=== PATIENT | male | born 1965 | race Caucasian/White ===

== ENCOUNTER 2018-04-23 01:16 | Emergency (ER) | payer MEDICAID ==
[~2018-04-23] VITALS: Ht 177.8 cm; Wt 101.4 kg
[2018-04-23 01:30] VITALS: Ht 177.8 cm; Wt 101.4 kg
[2018-04-23] MEDS ORDERED: ASPIRIN 81 MG TAB PO STA (01:56)
[2018-04-23 03:09] VITALS: BP 141/99; PULSE 78; RESP 19
--- NOTE | 2018-04-23 03:11 | ERD ---
ER Documentation Chief Complaint Chief Complaint pt reports CP started at 1600, pain is described as pressure HPI 52-year-old male with no past medical history presenting with chest pain that started around 4 PM today while he was at work. He was not doing any exertion at this time. The pain was in the left side of his chest, pressure-like, nonradiating, lasting for about 20 minutes with no other associated symptoms. Pain then spontaneously resolved. At 12 AM, he felt similar symptoms which is why he is here right now. He denies any chest pain currently. No shortness of breath, dizziness, nausea, vomiting. No history of recent travel, immobilization, or history of blood clots. ROS All systems reviewed and are negative except as per history of present illness. Allergies Allergies: Coded Allergies: No Known Allergy (Unverified , 04/23/18) PMhx/Soc Medical and Surgical Hx: pt denies Medical Hx, pt denies Surgical Hx Hx Alcohol Use: No Hx Substance Use: No Hx Tobacco Use: No Smoking Status: Never smoker FmHx Family History: No diabetes, No coronary disease Physical Exam Vitals Vital Signs Date Temp Pulse Resp B/P (MAP) Pulse Ox O2 O2 Flow FiO2 Time Delivery Rate 04/23/18 78 19 141/99 98 Room Air 03:09 (113) 04/23/18 98.0 90 16 166/100 99 01:30 (122) Physical Exam Const: No acute distress Head: Atraumatic Eyes: Normal Conjunctiva ENT: Normal External Ears, Nose and Mouth. Neck: Full range of motion. No meningismus. Resp: Clear to auscultation bilaterally Cardio: Regular rate and rhythm, no murmurs. 2+ distal pulses in all 4 extremities Abd: Soft, non tender, non distended. Normal bowel sounds Skin: No petechiae or rashes Back: No midline or flank tenderness Ext: No cyanosis, or edema Neur: Awake and alert Psych: Normal Mood and Affect Result Diagram: 04/23/18 02004/23/18 020 Results 24 hrs Laboratory Tests Test 04/23/18 02:03 White Blood Count 7.6 10^3/ul Red Blood Count 4.89 10^6/ul Hemoglobin 14.8 g/dl Hematocrit 44.3 % Mean Corpuscular Volume 90.6 fl Mean Corpuscular Hemoglobin 30.3 pg Mean Corpuscular Hemoglobin Concent 33.4 g/dl Red Cell Distribution Width 13.2 % Platelet Count 225 10^3/UL Mean Platelet Volume 10.7 fl Immature Granulocytes % 0.100 % Neutrophils % 36.1 % Lymphocytes % 46.3 % Monocytes % 11.0 % Eosinophils % 5.8 % Basophils % 0.7 % Nucleated Red Blood Cells % 0.0 /100WBC Immature Granulocytes # 0.010 10^3/ul Neutrophils # 2.8 10^3/ul Lymphocytes # 3.5 10^3/ul Monocytes # 0.8 10^3/ul Eosinophils # 0.4 10^3/ul Basophils # 0.1 10^3/ul Nucleated Red Blood Cells # 0.0 10^3/ul Sodium Level 142 mmol/L Potassium Level 3.7 mmol/L Chloride Level 99 mmol/L Carbon Dioxide Level 29 mmol/L Anion Gap 14 Blood Urea Nitrogen 12 mg/dl Creatinine 0.85 mg/dl Est Glomerular Filtrat Rate mL/min > 60 mL/min Glucose Level 109 mg/dl Calcium Level 9.6 mg/dl Troponin I < 0.012 ng/ml Current Medications Medications Dose Sig/Malika Start Time Status Last (Trade) Ordered Route PRN Stop Time Admin Dose Reason Admin Aspirin 162 mg ONCE STAT 04/23/18 DC 04/23/18 (Aspirin) PO 01:56 02:17 04/23/18 01:57 Procedures/MDM EMERGENT LABS AND DIAGNOSTIC STUDIES: Lab Results above were reviewed and interpreted by me. CBC: no anemia or evidence of infection CMP: No evidence of electrolyte abnormality, renal failure, hypoglycemia Troponin within normal limits, not indicative of cardiac ischemia 12-lead EKG was interpreted by Yadiel Vasquez MD: Normal Sinus Rhythm Normal axis Normal intervals T wave abnormality in III and avL. No ST elevation or depressions No acute STEMI. Radiology Results as interpreted by Radiology below were reviewed by Haseeb Vasquez MD: Chest Xray: no acute abnormalities Initial Nursing notes reviewed. Previous Medical Records requested via the Electronic Health Record. EMERGENCY DEPARTMENT COURSE / MEDICAL DECISION MAKING: The patient presents with chest pain. Vitals are stable. I considered pulmonary embolism, aortic dissection, pneumothorax among other diagnoses. Evaluation for acute coronary syndrome was performed. The HEART score was utilized for risk stratification and found to be 3. Repeat EKG and troponin were not done as patient's symptoms started greater than 6 hours ago. . Based on this evaluation the patient's risk of major adverse cardiac events is <1%. Shared decision making occurred with patient and the decision has been made to discharge the patient for outpatient evaluation and functional study within 72 hours. Patient instructed to arrange follow up with PCP in the next 2 days and return to the ED for any new or worsening symptoms. Patient's blood pressure was elevated (>120/80) but appears stable without evidence of hypertensive emergency or urgency. The patient was counseled about the risks of hypertension and urged to pursue outpatient monitoring and therapy within a week with their primary care physician. Departure Diagnosis: Primary Impression: Chest pain Chest pain type: unspecified Qualified Codes: R07.9 - Chest pain, unspecified Condition: Stable Patient Instructions: Chest Pain, Uncertain Cause Referrals: NO PRIMARY,CARE PHYSICIAN (PCP) [facility] ([facility]) Usted se alarcon hecho un examen mdico de control que le indica que no est en jeff condicin que requiera tratamiento urgente en el Departamento de Emergencia. Un estudio ms profundo y el tratamiento de ornelas condicin pueden esperar sin ningn riesgo hasta que usted sea atendida/o en el consultorio de ornelas mdico o jeff clnica. Es responsabilidad suya arreglar jeff jamshid para el seguimiento del selin. MANEJO DE CONDICIONES NO URGENTES EN EL FUTURO 1) Si usted tiene un mdico de atencin primaria: Usted debera llamar a ornelas mdico de atencin primaria antes de venir al departamento de emergencia. Despus de las horas de consultorio, ornelas doctor o ornelas asociado/a est disponible por telfono. El mdico o enfermero de sean en el servicio telefnico puede asesorarle por khalida medio para atender el problema, o selin contrario se puede programar jeff jamshid. 2) Si usted no tiene un mdico de atencin primaria: Llame al mdico o clnica de referencia que aparece abajo temitope las horas de consultorio para hacer jeff jamshid para que le vean. CLINICAS: [facility] [phone] [facility] [phone] [facility] [phone] [address] [facility] [place] [id number] [phone] [place] [id number] [phone] [facility]. [phone] [address] [facility]. [facility] () Usted se alarcon hecho un examen mdico de control que le indica que no est en jeff condicin que requiera tratamiento urgente en el Departamento de Emergencia. Un estudio ms profundo y el tratamiento de ornelas condicin pueden esperar sin ningn riesgo hasta que usted sea atendida/o en el consultorio de ornelas mdico o jeff clnica. Es responsabilidad suya arreglar jeff jamshid para el seguimiento del selin. MANEJO DE CONDICIONES NO URGENTES EN EL FUTURO 1) Si usted tiene un mdico de atencin primaria: Usted debera llamar a ornelas mdico de atencin primaria antes de venir al departamento de emergencia. Despus de las horas de consultorio, ornelas doctor o ornelas asociado/a est disponible por telfono. El mdico o enfermero de sean en el servicio telefnico puede asesorarle por khalida medio para atender el problema, o selin contrario se puede programar jeff jamshid. 2) Si usted no tiene un mdico de atencin primaria: Llame al mdico o condado institucions de referencia que aparece abajo temitope las horas de consultorio para hacer jeff jamshid para que le vean. SI USTED NO PUEDE PAGAR PARA SUHA UN MEDICO puede ir a: [facility] [id number] [place] [address] [facility] [address] [place] [address] [facility] [address] [place] [address] [facility] [facility] [address] [place], [place] [id number] Additional Instructions: Jerel jeff jamshid con ornelas mdico de atencin primaria dentro de los prximos 3 keating para un seguimiento. Si alguno de maribel sntomas empeora, regrese a la jovita de emergencias inmediatamente. MARY VASQUEZ MD Apr 23, 2018 03:11
== END 2018-04-23 03:10 | disposition home or self-care (01) ==
LOC: E/R 01:16
DX: R07.9 Chest pain, unspecified (principal)
CPT/HCPCS: 36415; 71045; 80048; 84484; 85025; Z7502; Z7610; 93005